=== PATIENT | female | born 1990 | race Asian ===

== ENCOUNTER 2022-08-18 19:25 | Inpatient (IN) | payer OTHER ==
[~2022-08-18] VITALS: Ht 154.9 cm; Wt 52.1 kg
[2022-08-18 20:15] LABS: BASO % 0.3 % (0.0-1.0); EOS # 0.1 10^3/uL (0.0-0.5); EOS % 0.7 % (0.0-3.0); HEMATOCRIT 26.7 % (36.0-47.0); HEMOGLOBIN 8.4 g/dl (12.0-15.5); LYMPH # 2.1 10^3/uL (1.5-5.0); LYMPH % 29.9 % (24.0-44.0); MEAN CORPUSCULAR HEMOGLOBIN 30.5 pg (27.0-33.0); MEAN CORPUSCULAR HGB CONC 31.5 g/dl (32.0-36.5); MEAN CORPUSCULAR VOLUME 97.1 fl (80.0-96.0); MONO # 0.4 10^3/uL (0.0-0.8); MONO % 5.4 % (2.0-8.0); NEUTROPHILS # 4.4 10^3/uL (1.5-8.5); NEUTROPHILS % 63.3 % (36.0-66.0); PLATELET COUNT, AUTOMATED 302 10^3/uL (150-450); RED BLOOD COUNT 2.75 10^6/uL (4.00-5.40)
[2022-08-18] MEDS ORDERED: IRON1TAB2 PO (20:15)
[2022-08-18] MEDS ORDERED: PANT20TA6 PO (20:16)
[2022-08-18 20:40] LABS: ALBUMIN 3.7 G/DL (3.2-5.2); ALKALINE PHOSPHATASE 65 U/L (46-116); ALT/SGPT 17 U/L (7.0-40); AST/SGOT 16 U/L (<34); BILIRUBIN,TOTAL 0.2 MG/DL (0.3-1.2); BLOOD UREA NITROGEN 9 MG/DL (9-23); CALCIUM LEVEL 8.9 MG/DL (8.5-10.1); CARBON DIOXIDE LEVEL 29 MMOL/L (20-31); CHLORIDE LEVEL 105 MMOL/L (98-107); CREATININE FOR GFR 0.63 MG/DL (0.55-1.30); GLOMERULAR FILTRATION RATE > 60.0 (>60); GLUCOSE, FASTING 91 MG/DL (60-100); SODIUM LEVEL 139 MMOL/L (136-145); TOTAL PROTEIN 6.7 G/DL (5.7-8.2)
[2022-08-18] MEDS ORDERED: NS 500 ML IV ONE (21:15)
[2022-08-18] MEDS ORDERED: PANT40TA29 PO (21:22)
[2022-08-18] MEDS ORDERED: HOME MED LIST COMPLETE! XX SCH (21:25)
[2022-08-18 22:16] LABS: RSV AMPLIFICATION NEGATIVE (NEGATIVE)
[2022-08-18] MEDS: HYDROMORPHONE HCL 0.5 MG/ 0.5 ML SYRINGE IV PRN (23:54)
[2022-08-19] VITALS (12 sets, daily range): BP systolic 98–142; BP diastolic 76–100
[2022-08-19 00:26] LABS: HEMATOCRIT 24.4 % (36.0-47.0); HEMOGLOBIN 7.7 g/dl (12.0-15.5)
[2022-08-19 00:41] LABS: INR 0.84; PROTHROMBIN TIME 11.7 SECONDS (12.5-14.5)
[2022-08-19 00:42] LABS: PARTIAL THROMBOPLASTIN TIME 29.5 SECONDS (24.8-34.2)
[2022-08-19] MEDS: LR 1,000 ML IV SCH ×2 (00:57→08:43)
[2022-08-19] MEDS: GASTROGRAFIN SOLUTION 30ML PO SCH ×2 (01:01→01:34)
[2022-08-19] MEDS ORDERED: ISOVUE-370 76% 100ML VIAL As Ordered ONE (01:23)
[2022-08-19] MEDS: HYDROMORPHONE HCL 0.5 MG/ 0.5 ML SYRINGE IV PRN ×3 (02:58→14:35)
[2022-08-19] MEDS ORDERED: ONDANSETRON 4MG 2ML VIAL IV PRN (03:25)
[2022-08-19 07:24] LABS: HEMATOCRIT 26.9 % (36.0-47.0); HEMOGLOBIN 8.6 g/dl (12.0-15.5); MEAN CORPUSCULAR HEMOGLOBIN 30.2 pg (27.0-33.0); MEAN CORPUSCULAR VOLUME 94.4 fl (80.0-96.0); PLATELET COUNT, AUTOMATED 218 10^3/uL (150-450); RED BLOOD COUNT 2.85 10^6/uL (4.00-5.40); WHITE BLOOD COUNT 6.1 10^3/uL (4.0-10.0)
[2022-08-19 09:06] LABS: PERCENT SATURATION 20.3 % (13.2-45.0)
[2022-08-19 09:08] LABS: FERRITIN 53.2 NG/ML (7.3-270.7)
[2022-08-19 09:09] LABS: FOLATE 16.69 NG/ML (>5.4)
[2022-08-19] MEDS: ANUSOL HC CREAM 30GM TOP SCH ×2 (09:58→20:09)
[2022-08-19] MEDS: LIDOCAINE 2% JELLY 6ML SYRINGE TOP SCH ×2 (09:59→20:11)
[2022-08-19] MEDS: LACTULOSE 20GM/30ML SYRUP UDC PO SCH ×3 (14:57→23:51)
[2022-08-19] MEDS: METAMUCIL (PSYLLIUM) PACKET PO SCH (20:08)
[2022-08-19] MEDS: SENOKOT S TAB PO SCH (20:08)
[2022-08-19] MEDS: NITROGLYCERIN 2% OINT 1 GM *U/D* PKT TOP SCH (20:10)
[2022-08-19] MEDS ORDERED: LIDOCAINE 2% JELLY 6ML SYRINGE TOP ONE (21:00)
[2022-08-19] MEDS: KETOROLAC 30 MG/ML 1ML VIAL IV PRN (23:51)
[2022-08-20 06:00] VITALS: BP 108/69
[2022-08-20] MEDS: LACTULOSE 20GM/30ML SYRUP UDC PO SCH ×2 (06:27→11:17)
[2022-08-20] MEDS: KETOROLAC 30 MG/ML 1ML VIAL IV PRN (06:28)
[2022-08-20 07:23] LABS: BASO % 0.2 % (0.0-1.0); EOS # 0.1 10^3/uL (0.0-0.5); EOS % 0.8 % (0.0-3.0); HEMATOCRIT 32.5 % (36.0-47.0); HEMOGLOBIN 10.5 g/dl (12.0-15.5); LYMPH # 1.2 10^3/uL (1.5-5.0); MEAN CORPUSCULAR HEMOGLOBIN 29.7 pg (27.0-33.0); MEAN CORPUSCULAR HGB CONC 32.3 g/dl (32.0-36.5); MEAN CORPUSCULAR VOLUME 92.1 fl (80.0-96.0); MONO # 0.4 10^3/uL (0.0-0.8); MONO % 7.1 % (2.0-8.0); NEUTROPHILS # 4.4 10^3/uL (1.5-8.5); NEUTROPHILS % 71.6 % (36.0-66.0); PLATELET COUNT, AUTOMATED 240 10^3/uL (150-450); RED BLOOD COUNT 3.53 10^6/uL (4.00-5.40); WHITE BLOOD COUNT 6.2 10^3/uL (4.0-10.0)
[2022-08-20 07:41] LABS: BLOOD UREA NITROGEN 6 MG/DL (9-23); CARBON DIOXIDE LEVEL 26 MMOL/L (20-31); CHLORIDE LEVEL 108 MMOL/L (98-107); CREATININE FOR GFR 0.59 MG/DL (0.55-1.30); GLOMERULAR FILTRATION RATE > 60.0 (>60); GLUCOSE, FASTING 77 MG/DL (60-100); POTASSIUM SERUM 3.5 MMOL/L (3.5-5.1); SODIUM LEVEL 139 MMOL/L (136-145)
[2022-08-20] MEDS: SENOKOT S TAB PO SCH (08:32)
[2022-08-20] MEDS: METAMUCIL (PSYLLIUM) PACKET PO SCH (08:32)
[2022-08-20] MEDS: LIDOCAINE 2% JELLY 6ML SYRINGE TOP SCH (08:33)
[2022-08-20 08:34] VITALS: BP 116/82
[2022-08-20] MEDS: NITROGLYCERIN 2% OINT 1 GM *U/D* PKT TOP SCH (08:34)
[2022-08-20] MEDS: ANUSOL HC CREAM 30GM TOP SCH (08:34)
[2022-08-20] MEDS ORDERED: META1POW PO (09:48)
[2022-08-20] MEDS ORDERED: LACT20EL PO (09:48)
[2022-08-20] MEDS ORDERED: SENN-52 PO (09:48)
[2022-08-20] MEDS ORDERED: GLYD10GE TOP (09:48)
[2022-08-20] MEDS ORDERED: NITR2OI TOP (09:48)
== END 2022-08-20 11:20 | disposition home or self-care (01) | DRG 378 ==
LOC: M ED 19:25 → M ED INP 23:07 → M MSPAV 08-19 00:26
PROVIDERS: ADMIT Internal Medicine; ATTEND Internal Medicine Nephrology
PROC: 30233N1 Transfusion of Nonautologous Red Blood Cells into Peripheral Vein, Percutaneous Approach (ICD-10-PCS; principal; 2022-08-19)
DX: K62.5 Hemorrhage of anus and rectum (principal); D62 Acute posthemorrhagic anemia; K59.00 Constipation, unspecified; K60.2 Anal fissure, unspecified; K64.8 Other hemorrhoids; Z79.899 Other long term (current) drug therapy

== ENCOUNTER 2022-08-21 13:49 | Emergency (ER) | payer OTHER ==
[~2022-08-21] VITALS: Ht 160 cm; Wt 53.0 kg
[~2022-08-21 13:49] MED LIST: GLYD10GE TOP; IRON1TAB2 PO; LACT20EL PO; META1POW PO; NITR2OI TOP; PANT20TA6 PO; PANT40TA29 PO; SENN-52 PO
[2022-08-21 18:53] LABS: BASO % 0.1 % (0.0-1.0); EOS # 0.1 10^3/uL (0.0-0.5); HEMATOCRIT 36.7 % (36.0-47.0); HEMOGLOBIN 11.8 g/dl (12.0-15.5); LYMPH # 1.8 10^3/uL (1.5-5.0); LYMPH % 25.6 % (24.0-44.0); MEAN CORPUSCULAR HEMOGLOBIN 29.8 pg (27.0-33.0); MEAN CORPUSCULAR HGB CONC 32.2 g/dl (32.0-36.5); MEAN CORPUSCULAR VOLUME 92.7 fl (80.0-96.0); MONO # 0.5 10^3/uL (0.0-0.8); NEUTROPHILS # 4.5 10^3/uL (1.5-8.5); PLATELET COUNT, AUTOMATED 282 10^3/uL (150-450); RED BLOOD COUNT 3.96 10^6/uL (4.00-5.40); WHITE BLOOD COUNT 6.9 10^3/uL (4.0-10.0)
[2022-08-21 19:04] LABS: INR 0.92; PARTIAL THROMBOPLASTIN TIME 29.1 SECONDS (24.8-34.2); PROTHROMBIN TIME 12.6 SECONDS (12.5-14.5)
[2022-08-21 19:15] LABS: BLOOD UREA NITROGEN 8 MG/DL (9-23); CALCIUM LEVEL 8.9 MG/DL (8.5-10.1); CARBON DIOXIDE LEVEL 26 MMOL/L (20-31); CHLORIDE LEVEL 106 MMOL/L (98-107); CREATININE FOR GFR 0.57 MG/DL (0.55-1.30); GLOMERULAR FILTRATION RATE > 60.0 (>60); GLUCOSE, FASTING 92 MG/DL (60-100); POTASSIUM SERUM 3.7 MMOL/L (3.5-5.1); SODIUM LEVEL 138 MMOL/L (136-145)
[2022-08-21] MEDS ORDERED: MORPHINE 2 MG/ML 1ML VIAL IV ONE (19:20)
[2022-08-21 21:04] VITALS: BP 103/77
== END 2022-08-21 21:14 | disposition home or self-care (01) ==
LOC: M ED 13:49
DX: K64.9 Unspecified hemorrhoids (principal); K60.2 Anal fissure, unspecified; Z87.19 Personal history of other diseases of the digestive system